=== PATIENT | male | born 1990 | race Caucasian/White ===

== ENCOUNTER 2018-01-26 02:46 | Emergency (ER) | payer BC, OTHER ==
[2018-01-26] MEDS ORDERED: Bupivacaine 0.5% 10 ML VIAL ONE (02:54)
[2018-01-26] MEDS ORDERED: Ondansetron ODT 4 MG TAB ONE (02:59)
[2018-01-26] MEDS ORDERED: Adacel (T-DAP) 0.5 ML VIAL ONE (03:21)
[2018-01-26] MEDS ORDERED: Triple Antibiotic Oint 1 GM Packet ONE (03:34)
--- NOTE | 2018-01-26 08:25 | RAD ---
RIGHT FINGER THREE VIEWS: History: Pain. FINDINGS/IMPRESSION: There is a minimally displaced oblique fracture involving the tuft of the distal phalanx. No radiopaq ue foreign body is seen. POS: SILVANOH
== END 2018-01-26 04:29 | disposition home or self-care (01) ==
LOC: NAV ERS 02:46
DX: S67.192A Crushing injury of right middle finger, initial encounter (principal); S67.41XA Crushing injury of right wrist and hand, initial encounter; S62.632A Displaced fracture of distal phalanx of right middle finger, initial encounter for closed fracture; F32.9 Major depressive disorder, single episode, unspecified; F43.10 Post-traumatic stress disorder, unspecified; F17.210 Nicotine dependence, cigarettes, uncomplicated; W23.0XXA Caught, crushed, jammed, or pinched between moving objects, initial encounter
CPT/HCPCS: 11760; 90471; 90715; 99001; J3490; Q0162

== ENCOUNTER 2020-03-02 10:52 | Emergency (ER) | payer BC, OTHER ==
[~2020-03-02 10:52] MED LIST: Iopamidol 370 76% 100 ML VIAL ONE
[2020-03-02] MEDS ORDERED: Ondansetron PF 4 MG/2 ML Vial ONE (11:07)
[2020-03-02] MEDS ORDERED: Morphine 4 MG/ML VIAL ONE ×2 (11:07→12:42)
[2020-03-02] MEDS ORDERED: Sodium Chloride 0.9% 1,000 ML ONE ×2 (11:07→12:13)
[2020-03-02 11:28] LABS: #Basophils 0.1 thou/uL (0.0-0.2); #Eosinphils 0.2 thou/uL (0.0-0.7); #Lymphocytes 1.7 thou/uL (1.20-3.40); #Monocytes 0.9 thou/uL (0.11-0.59); %Basophils 0.5 % (0.0-1.0); %Eosinophils 1.1 % (0.0-10.0); %Lymphocytes 8.3 % (21.0-51.0); %Monocytes 4.4 % (0.0-10.0); %Neutrophils 85.7 % (42.0-75.0); Hemoglobin 18.1 g/dL (14.0-18.0); Mean Corpuscular HGB CONC 33.3 g/dL (32.0-36.0); Mean Platelet Volume 7.4 fL (7.4-10.4); Platelet Count 290 thou/uL (130-400); RBC Distribution Width 11.2 % (11.5-14.5); Red Blood Cell (RBC) Count 6.03 mill/uL (4.70-6.10); White Blood Cell (WBC) Count 19.9 thou/uL (4.8-10.8)
[2020-03-02 11:31] LABS: ALT (SGPT) 27 U/L (8-55); AST (SGOT) 21 U/L (5-34); Alkaline Phosphatase 115 U/L (40-110); Anion Gap 16 mmol/L (10-20); BUN (Urea Nitrogen) 16 mg/dL (8.9-20.6); Bilirubin, Total 0.4 mg/dL (0.2-1.2); Calc. Creatinine Clearance 0 mL/min (70-130); Calcium 10.4 mg/dL (7.8-10.44); Carbon Dioxide 25 mmol/L (22-29); Chloride 100 mmol/L (98-107); Estimated GFR-MDRD 88; Globulin 3.6 g/dL (2.4-3.5); Glucose 107 mg/dL (70-105); Potassium 4.1 mmol/L (3.5-5.1); Protein, Total 8.6 g/dL (6.0-8.3); Sodium 137 mmol/L (136-145)
[2020-03-02] MEDS ORDERED: Meropenem 500 MG VIAL ONE (11:53)
[2020-03-02] MEDS ORDERED: Sodium Chloride 0.9% 250 ML 250 ML ONE (11:53)
--- NOTE | 2020-03-02 11:57 | CT ---
CT OF THE ABDOMEN AND PELVIS WITH IV CONTRAST INDICATION: Right-sided abdominal pain COMPARISON: None FINDINGS: ABDOMEN: Lung bases: Clear Liver: There is area of focal fatty infiltration of the falciform ligament. No additional focal hepat ic lesion is evident Gallbladder: Normal appearing. Pancreas: Normal. Adrenal glands: Normal. Spleen: Normal. Kidneys and ureters: Normal. No hydronephrosis. Vasculature: Normal. Lymph nodes:No lymphadenopathy. Free fluid in abdomen:No free fluid is evident. PELVIS: Small and large bowel: There is fluid density seen within the cecum and transverse colon which can be seen with diarrheal states or mild colitis. The small bowel is of normal caliber. There is some fluid distention of loops of jejunum and ileum which also could be related to a mild enteritis. Appendix:Normal Bladder: Normal. Rectal and perirectal soft tissues:Normal. Reproductive structures: Normal. Free fluid in pelvis: No free fluid is evident. Lymphadenopathy pelvis: No lymphadenopathy is evident. Osseous structures: No acute osseous abnormality. No destructive osteolytic or osteoblastic lesion i s identified. There is scattered degenerative and osteoarthritic changes. Soft tissues:Normal. IMPRESSION: 1. Fluid density seen within the cecum and transverse colon in addition to fluid distention of multip le loops of small bowel can be seen with a enterocolitis. Recommend correlation with the clinical examination. 2. No additional acute CT abnormality demonstrated.
[2020-03-02] MEDS ORDERED: metroNIDAZOLE 500 MG/100 ML BAG ONE (12:42)
[2020-03-02 13:35] LABS: Bilirubin Negative (Negative); Blood, Urine Negative (Negative); Clarity Clear (Clear); Glucose, Urine (Dipstick) Negative (Negative); Ketone, Urine Negative (Negative); Leukocyte Negative (Negative); Nitrite Negative (Negative); Protein, Urine (Dipstick) Negative (Neg-Trace); Urobilinogen 0.2 mg/dL (Less than 2); pH, Urine 5.5 (5.0-9.0)
== END 2020-03-02 13:02 | disposition short-term general hospital (02) ==
LOC: NAV ERS 10:52
DX: K52.9 Noninfective gastroenteritis and colitis, unspecified (principal); D72.829 Elevated white blood cell count, unspecified; F32.9 Major depressive disorder, single episode, unspecified; R11.2 Nausea with vomiting, unspecified; F43.10 Post-traumatic stress disorder, unspecified; F17.210 Nicotine dependence, cigarettes, uncomplicated
CPT/HCPCS: 74177; 80053; 81003; 83605; 85025; 86140; 96365; 96375; 96376; J2185; J2270; J2405; J7050; Q9967